=== PATIENT | female | born 1990 | race Caucasian/White ===

== ENCOUNTER 2020-08-26 07:06 | Inpatient (IN) | payer BC, OTHER ==
[2020-08-26] MEDS ORDERED: METHYLERGONOVINE 0.2 MG/ML 1 ML AMP IM PRN (08:17)
[2020-08-26] MEDS ORDERED: LIDOCAINE 0.5% (PF) 5 MG/ML (50 ML SDV) SQ PRN (08:17)
[2020-08-26] MEDS ORDERED: CARBOPROST TROMETHAMINE 250 MCG/ML 1 ML AMP IM PRN (08:17)
[2020-08-26] MEDS ORDERED: OXYTOCIN 10 UNIT/ML 1 ML VIAL IM PRN (08:17)
[2020-08-26] MEDS ORDERED: TERBUTALINE 1 MG/ML VIAL SQ PRN (08:17)
[2020-08-26] MEDS ORDERED: CLINDAMYCIN 900 MG in DEXTROSE 5% IN WATER 50 ML IVPB STA ×2 (08:17)
[2020-08-26] MEDS ORDERED: OXYTOCIN 30 UNITS/500 ML NS 30 UNIT in SALINE 1 500ML.BAG IV SCH (08:30)
[2020-08-26] MEDS ORDERED: LACTATED RINGERS 1,000 ML IV SCH (08:30)
[2020-08-26 09:13] LABS: Basophils % (A) 0 %; Eosinophils % (A) 0 %; HCT 36.8 % (34.0-46.0); HGB 11.9 gm/dL (11.4-16.0); Lymphocytes # (A) 1.1 k/uL (1.0-4.8); Lymphocytes % (A) 9 %; MCH 27.6 pg (25.0-35.0); MCHC 32.4 g/dL (31.0-37.0); MCV 85.1 fL (80.0-100.0); Mean Platelet Volume 8.6; Monocytes # (A) 0.3 k/uL (0-1.0); Monocytes % (A) 2 %; Neutrophils # (A) 10.6 k/uL (1.3-7.7); Neutrophils % (A) 88 %; Platelet Count 164 k/uL (150-450); RBC 4.32 m/uL (3.80-5.40); RDW 13.6 % (11.5-15.5); WBC 12.1 k/uL (3.8-10.6)
--- NOTE | 2020-08-26 09:35 | P.HPOB ---
History of Present Illness H&P Date: 08/26/20 Chief Complaint: Water broke at 3:30 this morning This is a 29-year-old white female 3 para 0111 EDC 09/20/2020 at 36-3/7 weeks' gestation. Patient has received her care at a different institution. She broke her water at 3:30 this morning and is having irregular mild uterine contractions. She states the fluid was clear. 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 history is significant for blood type A+, rubella status immune. VDRL testing, hepatitis B surface antigen, HIV testing, urine cultures all negative. Group B strep cultures unknown. One-hour Glucola within normal limits. Past medical history is essentially negative. Social history patient is a former tobacco smoker, she is single but in a steady monogamous relationship. She denies alcohol or drug use. Past surgical history wisdom teeth extracted in 2011. Family history is significant for colon cancer, heart disease, hypertension, diabetes, lupus, depression. Current medications vitamins daily. ALLERGIES penicillin to which reports a rash. On exam patient is 5 foot, 150 pounds, blood pressure on admission 130/73, vital signs are stable and she is afebrile. The general physical exam is within normal limits. The cervix is 7 cm dilated, 100% effaced, -1 station, vertex pre sentation. heart rate is consistent with reactive NST. There is a fore bag noted vaginally, this is ruptured for clear fluid and vernix. Impression: 36-3/7 weeks intrauterine , spontaneous amniorrhexis in active labor. Group B strep culture status unknown. history unknown at our institution, however records have been obtained. Plan: Penicillin G prophylaxis per group B strep protocol. Close maternal and surveillance. Analgesic options reviewed with the patient and at this time declined. Anticipate normal spontaneous vaginal delivery. Review of Systems Constitutional: Reports as per HPI Past Medical History Past Medical History: No Reported History History of Any Multi-Drug Resistant Organisms: None Reported Past Surgical History: No Surgical Hx Reported Past Anesthesia/Blood Transfusion Reactions: No Reported Reaction Smoking Status: Never smoker - Past Family History Father Family Medical History: No Reported History Medications and Allergies Allergies Allergy/AdvReac Type Severity Reaction Status Date / Time Penicillins Allergy Rash/Hives Verified 08/26/20 07:20 Exam Vital Signs Temp Pulse Resp BP Pulse Ox 08/26/20 07:15 97.8 F 89 17 130/73 98 Intake and Output 08/25/20 08/26/20 08/26/20 22:59 06:59 14:59 Other: Weight 68.039 kg See dictation under HPI please Results Result Diagrams: 08/26/20 08:30 Abnormal Lab Results - Last 24 Hours (Table) 08/26/20 Range/Units 08:30 WBC 12.1 H (3.8-10.6) k/uL Neutrophils # 10.6 H (1.3-7.7) k/uL Assessment and Plan Assessment: 36-3/7 weeks intrauterine , in active spontaneous labor. care at another institution, all signs currently reassuring. Group B strep status unknown. Plan: Penicillin G prophylaxis. Close maternal and surveillance. Analgesic options reviewed. Anticipate normal spontaneous vaginal delivery. Time with Patient: Less than 30
[2020-08-26] MEDS ORDERED: diphenhydrAMINE 25 MG CAP PO PRN (11:19)
[2020-08-26] MEDS ORDERED: ACETAMINOPHEN TAB 325 MG TAB PO PRN (11:19)
[2020-08-26] MEDS ORDERED: BENZOCAINE/MENTHOL SPRAY 1 GM/SPRAY AEROSOL TOPICAL PRN (11:19)
[2020-08-26] MEDS ORDERED: LANOLIN CREAM 5 GM TUBE TOPICAL PRN (11:19)
[2020-08-26] MEDS ORDERED: SIMETHICONE 80 MG CHEWABLE PO PRN (11:19)
[2020-08-26] MEDS ORDERED: ZOLPIDEM 5 MG TAB PO PRN (11:19)
[2020-08-26] MEDS ORDERED: diphenhydrAMINE 50 MG CAP PO PRN (11:19)
[2020-08-26] MEDS ORDERED: diphenhydrAMINE 50 MG/ML 1 ML VIAL IVP PRN ×2 (11:19)
[2020-08-26] MEDS ORDERED: HYDROCORTISONE 2.5% RECTAL CREAM 30 GM TUBE RECTAL PRN (11:19)
[2020-08-26] MEDS ORDERED: diphenhydrAMINE ELIXIR 25 MG/10 ML CUP PO PRN (11:19)
[2020-08-26] MEDS ORDERED: IBUPROFEN 600 MG TAB PO PRN (11:19)
--- NOTE | 2020-08-26 11:19 | P.PROBDLV ---
Vaginal Delivery Note - . Vaginal Delivery Note: This is a 29-year-old female 3 para 0111 who presented at 36-3/7 weeks' gestation with spontaneous amniorrhexis which occurred at home, clear fluid. Patient received care through another institution, but came to our hospital because she felt it was closer. She presented with mild irregular uterine contractions. Fetus active throughout the . Group B strep cultures negative. Please see dictated history and physical for details. Analgesic options were reviewed and declined. Patient progressed well, becoming completely dilated at 1014 hrs. Perineal body was prepped and draped in usual sterile fashion. With excellent maternal expulsive efforts the 's head delivered occiput anterior and restituted accordingly. There was a nuchal cord 1 that was reduced on the perineal body. The left or anterior shoulder was delivered gently from underneath the pubic symphysis at which time the oropharynx, nasopharynx, and external nares were bulb suctioned on the perineal body. Patient was officially delivered of a liveborn female at 1021 hours. Umbilical cord was doubly clamped and ligated, she was handed to waiting nurses for evaluation where scores of 9 and 9 at one and 5 minutes respectively were given. The placenta delivered spontaneously, it was inspected and noted to be intact with trivascular cord at 1025 hrs. It is sent to pathology for early . Uterus is then massaged. Careful inspection of the cervix, vagina, perineum, periurethral, and perirectal areas revealed a small first- degree midline laceration. This was easily repaired with a single stitch of 3-0 repeat. Total estimate a blood loss 200 mL's. 's weight 5 lbs. 9 oz. or 2530 g. Please note that one dose of clindamycin had been given for unknown group B strep culture status. Patient and her are allowed to begin the bonding experience in the LDR.
[2020-08-26] MEDS ORDERED: CLINDAMYCIN 900 MG in DEXTROSE 5% IN WATER 50 ML IVPB SCH ×2 (16:30)
[2020-08-26] MEDS: SENNOSIDES-DOCUSATE SODIUM 1 EACH TAB PO SCH (21:52)
--- NOTE | 2020-08-27 08:30 | P.DS ---
Providers Date of admission: 08/26/20 07:53 Expected date of discharge: 08/27/20 Attending physician: Zina Rinaldi Primary care physician: Stated None Hospital Course: This is a 29-year-old white female 3 para 1011 EDC 09/20/2020 at 36-3/7 weeks' gestation who presented to our hospital after spontaneous amniorrhexis at home. Her care was elsewhere, but she came to our hospital because it was a short distance. remarkable for blood type A+, rubella status immune, group B strep status unknown. Please see dictated history and physical for details. Patient went on to swiftly to deliver a liveborn female vaginally, scores 9 and 9 at one and 5 minutes respectively. There was a tight nuchal cord 1 that was reduced. Infant weighed 5 lbs. 9 oz. or 2530 g. Clindamycin was given 1 dose prophylactically. Please see dictated delivery note for details. This morning the patient is doing well. She is voiding, ambulating, passing flatus without difficulty. Vital signs are stable and she is afebrile. Fundus is firm and in the midline, symmetric and 18 week size. Extremities are negative for edema. [place] infant is doing well. I have given her prescription for a double electric breast pump per her request. Patient is judged to be in good condition for discharge home. 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 I have reminded her no intercourse, tampons or douching. She will use [id number] Advil or Aleve, or Motrin as needed for pain. She will call with any fevers shakes or chills, foul smelling or copious lochia, with the passage of large blood clots, with any pain not alleviated by [id number] products, or indeed with any concerns. Assessment: Doing well day #1 Patient Condition at Discharge: Good Plan - Discharge Summary Discharge Rx Participant: No Discharge Disposition: HOME SELF-CARE
[2020-08-27 15:11] VITALS: RESP 16
[2020-08-27] MEDS: SENNOSIDES-DOCUSATE SODIUM 1 EACH TAB PO SCH (22:28)
[2020-08-28 07:59] VITALS: BP 113/77; PULSE 100; TEMP 97.5
[2020-08-28] MEDS: SENNOSIDES-DOCUSATE SODIUM 1 EACH TAB PO SCH (13:13)
--- NOTE | 2020-08-29 01:07 | P.MSEPDOC ---
Presenting Problems - Arrival Data Date of Arrival on Unit: 08/26/20 Time of Arrival on Unit: 07:06 Mode of Transport: Wheelchair - Complaint OB-Reason for Admission/Chief Complaint: Rule Out SROM Comment: pt has been receiving care with dr araiza out of [facility], pt lives closer to this facility and wishes to deliver here, pt denies complications with , abd soft and non tender, reports contractions every 5-6 minutes Medical History - Information : 3 Para: 1 Term: 0 : 1 Abortions: Spontaneous or Elective: 1 Number of Living Children: 1 - Gestational Age Gestational Age by BONNIE (wks/days): 36 Weeks and 3 Days - History Comment: GBS unknown Review of Systems - Review of Systems Constitutional: No problems Breast: No problems ENT: No problems Cardiovascular: No problems Respiratory: No problems Gastrointestinal: No problems Genitourinary: No problems Musculoskeletal: No problems Neurological: No problems Skin: No problems Vital Signs - Temperature Temperature: 97.5 F Temperature Source: Oral - Pulse Right Brachial Pulse Rate: 100 Pulse Assessment Method: Pulse Oximetry - Respirations Respiratory Rate: 16 Oxygen Delivery Method: Room Air O2 Sat by Pulse Oximetry: 99 - Blood Pressure Right Arm Blood Pressure: 113/77 Blood Pressure Mean: 89 Blood Pressure Source: Automatic Cuff Medical Screen Scoring (Pre) - Cervical Exam Dilation: 4-7 cm = 2 Effacement: More than 50% = 2 Membranes: Ruptured = 3 - Uterine Contractions Frequency: > 5 minutes apart = 1 Duration: > 40 seconds = 2 Intensity: N/A - Maternal Vital Signs Maternal Temperature: N/A Maternal Blood Pressure: N/A Signs of Preeclampsia: N/A Maternal Respirations: N/A - Maternal Trauma Maternal Trauma: N/A - Assessment - Baby A Baseline FHR: 135 Heart Rate - NICHD Category: Category I (Normal) = 0 NST: Reactive Position: N/A Station: N/A - Total Score - Baby A Total Score - Baby A: 10 - Total Score - Baby B Total Score - Baby B: 10 - Total Score - Baby C Total Score - Baby C: 10 - Level of Risk - Baby A Level of Risk - Baby A: High (10+) - Level of Risk - Baby B Level of Risk - Baby B: High (10+) - Level of Risk - Baby C Level of Risk - Baby C: High (10+) Physician Notification (Pre) - Physician Notified Physician Notified Date: 08/26/20 Physician Notified Time: 08:32 New Order Received: Yes (admit for labor) Disposition - Disposition OB Disposition: Admit, LDRP Suite Discharge Date: 08/28/20 Discharge Time: 14:00 I agree with the RN Medical Screening Exam: Yes Case reviewed; plan agreed upon as documented in EMR&OBIX.: Yes Diagnosis: LOUSE-BORNE TYPHUS
== END 2020-08-28 14:00 | disposition home or self-care (01) | DRG 807 ==
LOC: FBPOP 07:06 → 4FBP 07:53
PROVIDERS: ADMIT Obstetrics & Gynecology; ATTEND Obstetrics & Gynecology
PROC: 0HQ9XZZ Repair Perineum Skin, External Approach (ICD-10-PCS; principal; 2020-08-26)
PROC: 10E0XZZ Delivery of Products of Conception, External Approach (ICD-10-PCS; principal; 2020-08-26)
DX: O42.013 Preterm premature rupture of membranes, onset of labor within 24 hours of rupture, third trimester (principal); Z37.0 Single live birth; O69.1XX0 Labor and delivery complicated by cord around neck, with compression, not applicable or unspecified; O70.0 First degree perineal laceration during delivery; Z3A.36 36 weeks gestation of pregnancy; Z87.891 Personal history of nicotine dependence; Z88.0 Allergy status to penicillin; Z80.0 Family history of malignant neoplasm of digestive organs; Z82.49 Family history of ischemic heart disease and other diseases of the circulatory system; Z83.3 Family history of diabetes mellitus; Z81.8 Family history of other mental and behavioral disorders; Z82.69 Family history of other diseases of the musculoskeletal system and connective tissue
CPT/HCPCS: 85025; 86850; 86900; 86901; 88307